=== PATIENT | female | born 1985 | race American Indian/Alaskan Native ===

== ENCOUNTER 2017-05-12 08:03 | Outpatient (CLI) | payer BC ==
--- NOTE | 2017-05-12 10:13 | Ultrasound Report ---
TRANSABDOMINAL AND TRANSVAGINAL PELVIC ULTRASOUND: 05/12/17 08:03:00 CLINICAL: Left adnexal tenderness. FINDINGS: Transabdominal and transvaginal pelvic ultrasound demonstrated a mildly enlarged fibroid uterus measuring 8.2 x 5.3 x 8.2 cm. The largest fibroid is located subserosal to the left in the mid uterine body and measures 5.6 x 4.0 x 4.0 cm. The next largest fibroid is located subserosal in the posterior fundus and measures 4.0 x 2.9 x 3.7 cm. A posterior fundal intramural fibroid measures 2.5 x 2.1 x 2.8 cm and is submucosal fibroid of the posterior uterine body measures 1.4 x 1.2 x 1.3 cm.A mildly thickened proliferative endometrium measures 12.0 mm AP thickness. Normal right ovary. The right ovary measures 3.3 x 1.9 x 2.0cm. A 1.2 cm follicle of the left ovary. The left ovary measures 2.4 x 2.1 x 2.2cm. No adnexal mass. No free fluid. Normal urinary bladder. IMPRESSION: 1. Uterine leiomyomata with a dominant left sided subserosal fibroid measuring 5.6 cm. 2. Normal endometrium. 3. Normal ovaries with a 1.2 cm follicle of the left ovary.
== END 2017-05-12 08:04 | disposition home or self-care (01) ==
LOC: SPVWC 08:03
PROVIDERS: ATTEND Internal Medicine
DX: D25.2 Subserosal leiomyoma of uterus (principal); D25.1 Intramural leiomyoma of uterus; D25.0 Submucous leiomyoma of uterus
CPT/HCPCS: 76830; 76856